=== PATIENT | male | born 1950 | race African-American/Black ===

== ENCOUNTER 2017-03-30 19:10 | Emergency (ER) | payer SELFPAY ==
[~2017-03-30] VITALS: Ht 167.6 cm; Wt 54.4 kg
[~2017-03-30 19:10] MED LIST: CENTRUM COMPLE1 EAC1 PO; COLACE100 MG ORAL; IBUPROFEN400 MG ORAL; VALIUM5 MG ORAL; [UNRECOGNIZED DRUG - REMARK]
[2017-03-30 19:30] VITALS: BP 166/97
[2017-03-30 21:30] VITALS: BP 152/89
[2017-03-30] MEDS ORDERED: IBUPROFEN600 MG ORAL (21:33)
[2017-03-30] MEDS ORDERED: TAMIFLU75 MG ORAL (21:33)
[2017-03-30] MEDS ORDERED: PROMETHAZINE-D118 ML ORAL (21:33)
--- NOTE | 2017-03-30 21:37 | Emergency Room Report ---
History of Present Illness General Chief Complaint: General Complaint Source: Patient (RUSTAM JIMÉNEZ) Present Illness HPI The patient is a 66-year-old male visiting from [place] presenting for 2 days of fever, cough, myalgia. He denies any known sick contacts. He has not tried any medications. He denies other symptoms including chest pain, shortness of breath, wheezing, rash, hemoptysis (RUSTAM JIMÉNEZ) Allergies: Coded Allergies: NO KNOWN ALLERGIES (Unverified Allergy, Unknown, 04/09/15) Patient History Past Medical History: see triage record Pertinent Family History: none Reviewed Nursing Documentation: PMH: Agreed, PSxH: Agreed (RUSTAM JIMÉNEZ) Review of Systems All Other Systems: negative except mentioned in HPI (RUSTAM JIMÉNEZ) Physical Exam Vital Signs Date Time Temp Pulse Resp B/P (MAP) Pulse Ox O2 Delivery O2 Flow Rate FiO2 03/30/17 19:13 100.9 82 18 166/97 98 Room Air Sp02 EP Interpretation: reviewed, normal General Appearance: no apparent distress, alert, GCS 15, non-toxic Eyes: bilateral eye normal inspection, bilateral eye PERRL ENT: no angioedema, normal voice, uvula midline, nasal congestion, pharyngeal erythema Neck: full range of motion, supple/symm/no masses Respiratory: chest non-tender, lungs clear, normal breath sounds, no wheezing, speaking full sentences Cardiovascular #1: regular rate, rhythm, no edema Musculoskeletal: back normal, gait/station normal, normal range of motion Neurologic: alert, oriented x3, responsive, motor strength/tone normal, sensory intact, speech normal Psychiatric: judgement/insight normal, memory normal, mood/affect normal, no suicidal/homicidal ideation Skin: normal color, no rash, warm/dry, well hydrated Lymphatic: no adenopathy (RUSTAM JIMÉNEZ) Medical Decision Making PA Attestation Dr. Jackson is my supervising physician. Patient management was discussed with my supervising physician (RUSTAM JIMÉNEZ) Diagnostic Impression: Primary Impression: Influenza ER Course The patient is a 66-year-old male visiting from [place] presenting for 2 days of fever, cough, myalgia Differential diagnosis include but not limited to influenza, pharyngitis, sinusitis, AOM, bronchitis, PNA Physical exam: Patient is febrile. Lethargic HEENT exam reveals pharyngeal erythema. No exudate. Nasal congestion Lungs are clear to auscultation bilaterally. No respiratory distress Skin warm and dry CXR unremarkable The patient will be treated for influenza with prescription for Motrin, Tamiflu , and cough medication. She is given strict ER precautions. She was told this is highly contagious. (RUSTAM JIMÉNEZ P.A.) ER Course I have reviewed the PA's interpretation of Xray results and agree with findings. (Fabián Jackson M.D.) Chest X-Ray Diagnostic Results Chest X-Ray Diagnostic Results : Chest X-Ray Ordered: Yes # of Views/Limited/Complete: 1 View Indication: Other - cough' EP Interpretation: Yes PA Xray: Interpretation reviewed, by supervising MD, and agrees with findings. Interpretation: no consolidation, no effusion, no pneumothorax Impression: No acute disease Electronically Signed by: Rustam Jiménez PA-C (RUSTAM JIMÉNEZ P.A.) Last Vital Signs Date Time Temp Pulse Resp B/P (MAP) Pulse Ox O2 Delivery O2 Flow Rate FiO2 03/30/17 19:13 100.9 82 18 166/97 98 Room Air Status: improved (RUSTAM JIMÉNEZ P.A.) Disposition: HOME, SELF-CARE Condition: Improved Scripts D-Methorphan Hb/Prometh Hcl* (PROMETHAZINE-DM SYRUP*) 118 Ml Syrup 5 ML ORAL Q6H Y for For Cough, #118 ML 0 Refills Prov: JAVIERZIANKATHERINEY P.A. 03/30/17 Oseltamivir Phosphate (Tamiflu) 75 Mg Capsule 75 MG ORAL TWICE A DAY, #10 CAP Prov: TERZIAN,RUSTAM P.A. 03/30/17 Ibuprofen* (MOTRIN*) 600 Mg Tablet 600 MG ORAL Q8H Y for For Pain, #30 TAB 0 Refills Prov: TERZIANRUSTAM P.A. 03/30/17 Patient Instructions: Influenza, Adult Additional Instructions: I discussed my findings with the patient. All questions and concerns have been answered. Treatment and medication compliance have been addressed. I advised the patient that they need to follow up with PMD in 3-5 days. Return to ED if pain remains or worsens, cough worsens or remains, you notice blood in your sputum, you notice wheezing, you experience a fever, or if needed for any reason. Patient verbalized understanding of discharge instructions. RUSTAM JIMÉNEZ Mar 30, 2017 21:37 Fabián Jackson M.D. Mar 31, 2017 21:16
[2017-03-30 21:55] VITALS: BP 152/89
[2017-03-31 04:00] VITALS: BP 166/97
--- NOTE | 2017-03-31 09:03 | Diagnostic Imaging Report ---
Indication: Reason For Exam: COUGH Technique: One view of the chest Comparison: none Findings: Lungs and pleural spaces are clear. The heart size is normal. The aorta is tortuous Impression: No acute process
== END 2017-03-30 21:55 | disposition home or self-care (01) ==
LOC: EMR 19:55
DX: J11.1 Influenza due to unidentified influenza virus with other respiratory manifestations (principal)
CPT/HCPCS: 71010; 99283